=== PATIENT | male | born 1965 | race Caucasian/White ===

== ENCOUNTER 2017-01-14 11:07 | Emergency (ER) | payer OTHER, MEDICARE ==
--- NOTE | 2017-01-14 12:41 | ED GENERAL ADULT ---
History of Present Illness General Chief Complaint: Laceration Procedure Stated Complaint: LAC TO LFT HAND Source: patient Exam Limitations: no limitations Vital Signs & Intake/Output Vital Signs & Intake/Output Vital Signs Date Time Temp Pulse Resp B/P B/P Pulse O2 O2 Flow FiO2 Mean Ox Delivery Rate 01/14 1116 97.8 100 16 137/95 95 Room Air Allergies Coded Allergies: No Known Allergies (01/14/17) Triage Note: PT TO ED S/P A PULLSAW FELL ONTO HIS LT HAND. NOTED LAC ABOUT 1INCH LONG. NO BLEEDING AT THIS TIME. PT UNSURE OF LAST TETANUS SHOT. DSG IN PLACE FROM TRIAGE. Triage Nurses Notes Reviewed? yes HPI: 51-year-old left-hand dominant otherwise healthy male presenting with laceration to left hand that occurred with a saw about one hour ago. Patient was cutting tree branches with a pull saw when he accidentally hit his hand. Patient reports tetanus is up-to-date. (Acknowledge that triage note states patient is unsure of his last tetanus, however patient adamantly states that he had a tetanus shot within the past 2-3 years). Denies numbness or paresthesias. Past History Travel History Traveled to [place] past 21 day No Medical History Any Pertinent Medical History? none Surgical History Surgical History: non-contributory Psychosocial History What is your primary language Gu[place]an Tobacco Use: Never used Family History Hx Contributory? No Review of Systems Review of Systems Constitutional: Reports: no symptoms. Respiratory: Reports: no symptoms. Cardiovascular: Reports: no symptoms. GI: Reports: no symptoms. Genitourinary: Reports: no symptoms. Musculoskeletal: Reports: no symptoms. Skin: Reports: see HPI. Neurological/Psychological: Reports: no symptoms. Physical Exam Physical Exam General Appearance: well developed/nourished, no apparent distress, alert, awake , comfortable Head: atraumatic Respiratory: normal breath sounds, lungs clear Cardiovascular: regular rate/rhythm, normal peripheral pulses Neurologic/Psych: awake, alert, oriented x 3, normal mood/affect Skin: normal color, warm/dry, on exam there is a 2-3 cm laceration on the palmar surface over the thenar eminence of the left hand, unrestricted range of motion at all PIP/DIP/MCP joints, tendons are all intact, sensation intact to median/ radial/ulnar nerves, motor strength 5 out of 5 in each digit and hand room service waiter/waitress strength, Refill less than 2 seconds Core Measures ACS in differential dx? No CVA/TIA Diagnosis: No Severe Sepsis Present: No Septic Shock Present: No Progress Differential Diagnoses I considered the following diagnoses in my evaluation of the patient: [ Laceration versus tendon injury versus fracture] Plan of Care: Current Medications Sig/Hannah Start time Last Medication Dose Stop Time Status Admin Lidocaine/Epinephrine 20 ML ONCE ONE 01/14 1245 UNVr 01/14 1246 Wound repaired with six stitches of 4-0 nylon sutures. Tetanus not up-to-date at this time as patient is declining because he states it was updated in the past 2-3 years. Instructed to follow-up in 7 days for suture removal. (DEMETRIO MORTENSEN,RICHARD) Initial ED EKG: none Departure Departure Disposition: HOME OR SELF CARE Condition: Stable Clinical Impression Primary Impression: Laceration of left thumb Referrals: UNKNOWN (PCP/Family) Additional Instructions: Keep the wound clean and dry. Apply bacitracin once daily. Follow up with her primary care provider in 7 days for suture removal. Return to the ED for any new or worsening symptoms. Departure Forms: Customer Survey General Discharge Information Procedures Laceration/Wound Repair Laceration/Wound Repair: Wound Location: upper extremity (thenar eminence left palm) Wound Length (cm): 3 Irrigated w/ Saline (ccs): 60 Betadine Prep? Yes Anesthesia: lidocaine w/ epi Volume Anesthetic (ccs): 2 Suture Size/Type: 4:0, nylon Number of Sutures: 6 Layer Closure? No Tetanus Status: up to date Critical Care Note Critical Care Note Critical Care Time: non-applicable
[2017-01-14 13:38] VITALS: BP 138/74
== END 2017-01-14 13:39 ==
LOC: ERH 11:07
DX: S61.012A Laceration without foreign body of left thumb without damage to nail, initial encounter (principal); W27.0XXA Contact with workbench tool, initial encounter; Y93.H9 Activity, other involving exterior property and land maintenance, building and construction; Y92.9 Unspecified place or not applicable